=== PATIENT | male | born 1945 | race Caucasian/White ===

== ENCOUNTER 2020-10-04 13:38 | Emergency (ER) | payer MEDICARE ==
[~2020-10-04] VITALS: Ht 165.1 cm; Wt 70.3 kg
[2020-10-04] MEDS ORDERED: TETANUS/DIPHTHERIA TOX ADULT 0.5 ML SYR IM ONE (14:00)
[2020-10-04] MEDS ORDERED: LIDOCAINE HCL 1% LOCAL INJ 20 ML VIAL INJ ONE (14:45)
[2020-10-04] MEDS ORDERED: LIDOCAINE 1% W/EPINEPHRINE 20 ML VIAL ONE (15:48)
[2020-10-04] MEDS ORDERED: BACITRACIN ZINC 0.9GM TP ONE (15:48)
== END 2020-10-04 17:14 | disposition home or self-care (01) ==
LOC: ER 13:42
DX: S61.511A Laceration without foreign body of right wrist, initial encounter (principal); W29.8XXA Contact with other powered hand tools and household machinery, initial encounter; Y92.008 Other place in unspecified non-institutional (private) residence as the place of occurrence of the external cause; E11.9 Type 2 diabetes mellitus without complications; I25.10 Atherosclerotic heart disease of native coronary artery without angina pectoris; E78.5 Hyperlipidemia, unspecified; Z95.1 Presence of aortocoronary bypass graft
CPT/HCPCS: 13132; 73130; 90471; 90714; 99284; J2001